=== PATIENT | female | born 1985 | race African-American/Black ===

== ENCOUNTER 2016-05-26 07:09 | Emergency (ER) | payer MEDICAID ==
[~2016-05-26] VITALS: Ht 144.8 cm; Wt 77.1 kg
[2016-05-26 07:10] VITALS: BP_SYST 129
--- NOTE | 2016-05-26 07:10 | NUR ---
BROUGHT IN BY [facility] AND PLACED IN BED #7, SITTER/CAREGIVER AT BEDSIDE, TRIAGED AND REPORT GIVEN TO CARROLL
--- NOTE | 2016-05-26 07:15 | NUR ---
Patient in stable condition, alert and oriented x4. States checked blood sugar this AM and machine would not read. Denies headache, blurred vision, fatique, increased thirst. States only symptom she is experiencing is increased urination. Visitor at bedside. No other complaints/injuries per patient or noted. Addendum: 05/26/16 at 0822 by APARNA visitor (caregiver present)
--- NOTE | 2016-05-26 07:20 | NUR ---
DR DANIELS AT BEDSIDE FOR EVALUATION
[2016-05-26] MEDS ORDERED: NACL 0.9% 1,000 ML IV ONE (07:45)
--- NOTE | 2016-05-26 07:45 | NUR ---
Patient eloped with visitor. Ambulatory with steady gait. Patient or visitor would not respond when spoken to. jewel flat surfacer, security and Dr. Ayala notified. Security stated will attempted to look for patient. Addendum: 05/26/16 at 0822 by APARNA visitor is caregiver
--- NOTE | 2016-05-26 08:15 | NUR ---
Patient and visitor (caregiver) returned to ER, patient yelling, triage nurse Teresa speaking with patient
[2016-05-26 08:49] LABS: EOSINOPHILS # (AUTO) 0.1 K/uL (0.0-0.4); EOSINOPHILS % (AUTO) 2.9 % (0.0-4.0); HEMATOCRIT 37.4 % (36-48); HEMOGLOBIN 12.8 g/dL (12.0-16.0); LYMPHOCYTES # (AUTO) 1.9 K/uL (1.0-5.5); LYMPHOCYTES % (AUTO) 41.7 % (20.5-51.5); MEAN CORPUSCULAR HEMOGLOBIN 30 pg (27-31); MEAN CORPUSCULAR HGB CONC 34 % (32-36); MEAN CORPUSCULAR VOLUME 87 fL (79.0-98.0); MONOCYTES # (AUTO) 0.3 K/uL (0.0-1.0); MONOCYTES % (AUTO) 7.1 % (1.7-9.3); PLATELET COUNT (AUTO) 51 K/uL (130-430); RED BLOOD CELL COUNT(AUTO) 4.29 MIL/uL (4.2-6.2); RED CELL DISTRIBUTION WIDTH 15.3 % (9.0-15.0); WHITE BLOOD COUNT (AUTO) 4.7 K/uL (4.8-10.8)
[2016-05-26 08:53] LABS: NEUTROPHILS # (AUTO) 2.4 K/uL (1.8-7.7)
[2016-05-26 09:24] LABS: BILIRUBIN,URINE NEGATIVE (NEGATIVE); BLOOD, URINE NEGATIVE (NEGATIVE); CLARITY/URINE CLEAR (CLEAR); COLOR,URINE YELLOW (YELLOW); GLUCOSE,URINE 3+ (NEGATIVE); KETONES,URINE NEGATIVE (NEGATIVE); LEUKOCYTE ESTERASE ,URINE NEGATIVE (NEGATIVE); NITRITE, URINE NEGATIVE (NEGATIVE); PROTEIN URINE NEGATIVE (NEGATIVE); UROBILINOGEN,URINE 0.2 (0.2-1.0)
[2016-05-26 10:09] LABS: ALBUMIN 2.7 g/dL (3.4-4.8); CALCIUM 8.2 mg/dL (8.4-11.0); CREATININE 1.18 mg/dL (0.55-1.30); POTASSIUM 4.2 mmol/L (3.5-5.1); TOTAL BILIRUBIN 0.3 mg/dL (0.0-1.0); TOTAL PROTEIN, SERUM 6.1 g/dL (6.4-8.3)
[2016-05-26 10:24] LABS: RBC,URINE NONE SEEN /HPF (0-3)
[2016-05-26 10:25] LABS: BACTERIA,URINE FEW /HPF (None Seen); MUCUS,URINE None Seen /LPF (None Seen); WBC,URINE 0-3 /HPF (0-3)
[2016-05-26 10:27] LABS: NEUTROPHILS % (AUTO) 48.3 % (40.0-70.0)
--- NOTE | 2016-05-26 10:52 | NUR ---
Patient & care givers given written and verbal discharge instructions and verbalizes understanding. ER MD discussed with patient the results and treatment provided. Given copies of tests performed in ER. Patient in stable condition. ID arm band removed. IV catheter removed intact and dressing applied, no active bleeding. Patient & care givers educated on pain management and to follow up with PMD. Pain Scale 0/10.Opportunity for questions provided and answered.
== END 2016-05-26 10:52 | disposition home or self-care (01) ==
LOC: SED 07:09
DX: E11.65 Type 2 diabetes mellitus with hyperglycemia (principal); I10 Essential (primary) hypertension; F20.9 Schizophrenia, unspecified; F31.9 Bipolar disorder, unspecified; F41.9 Anxiety disorder, unspecified; Z79.4 Long term (current) use of insulin
CPT/HCPCS: 36415; 80053; 81000-TC; 81025; 82962; 83605; 85025; 87040-TC; 96360; 99284; J7030

== ENCOUNTER 2017-07-30 11:58 | Emergency (ER) | payer MEDICAID ==
[~2017-07-30] VITALS: Ht 160 cm; Wt 79.4 kg
[2017-07-30 11:58] VITALS: BP_SYST 115
[2017-07-30] MEDS ORDERED: NACL 0.9% 1,000 ML IV ONE (12:01)
[2017-07-30] MEDS ORDERED: DEXT-81 PO (12:16)
[2017-07-30] MEDS ORDERED: METF1000 PO (12:16)
[2017-07-30] MEDS ORDERED: LORA-259 PO (12:16)
[2017-07-30] MEDS ORDERED: IBUP-1479 PO (12:16)
[2017-07-30] MEDS ORDERED: TRAZ-126 PO (12:16)
[2017-07-30] MEDS ORDERED: ZOLP10TA2 PO (12:16)
[2017-07-30] MEDS ORDERED: LISI10TA5 PO (12:16)
[2017-07-30] MEDS ORDERED: OMEP40CA33 PO (12:16)
[2017-07-30] MEDS ORDERED: GUAI100S PO (12:16)
[2017-07-30] MEDS ORDERED: MONT10TA25 PO (12:16)
[2017-07-30] MEDS ORDERED: CALC-939 PO (12:16)
[2017-07-30] MEDS ORDERED: ALBMDI INH (12:16)
[2017-07-30] MEDS ORDERED: INSU100V9 SUBCUT (12:16)
[2017-07-30 13:14] LABS: BASOPHILS # (AUTO) 0.1 K/uL (0.0-0.2); BASOPHILS % (AUTO) 0.7 % (0.0-2.0); EOSINOPHILS # (AUTO) 0.2 K/uL (0.0-0.4); EOSINOPHILS % (AUTO) 1.4 % (0.0-4.0); HEMOGLOBIN 12.1 g/dL (12.0-16.0); LYMPHOCYTES # (AUTO) 2.1 K/uL (1.0-5.5); LYMPHOCYTES % (AUTO) 15.7 % (20.5-51.5); MEAN CORPUSCULAR HEMOGLOBIN 29 pg (27-31); MEAN CORPUSCULAR HGB CONC 34 % (32-36); MEAN CORPUSCULAR VOLUME 84 fL (79.0-98.0); MONOCYTES # (AUTO) 0.7 K/uL (0.0-1.0); NEUTROPHILS % (AUTO) 77.2 % (40.0-70.0); PLATELET COUNT (AUTO) 144 K/uL (130-430); RED BLOOD CELL COUNT(AUTO) 4.26 MIL/uL (4.2-6.2); RED CELL DISTRIBUTION WIDTH 16.3 % (9.0-15.0); WHITE BLOOD COUNT (AUTO) 13.1 K/uL (4.8-10.8)
[2017-07-30 13:28] LABS: CALCIUM 8.9 mg/dL (8.4-11.0); CREATININE 0.9 mg/dL (0.55-1.30); POTASSIUM 3.6 mmol/L (3.5-5.1)
[2017-07-30 13:33] LABS: ALBUMIN 3.1 g/dL (3.4-4.8); TOTAL BILIRUBIN 0.2 mg/dL (0.0-1.0)
[2017-07-30 13:34] LABS: PROTHROMBIN TIME 10.4 SECS (9.5-12.5)
[2017-07-30 14:52] LABS: BILIRUBIN,URINE NEGATIVE (NEGATIVE); BLOOD, URINE NEGATIVE (NEGATIVE); CLARITY/URINE SL HAZY (CLEAR); COLOR,URINE YELLOW (YELLOW); GLUCOSE,URINE NEGATIVE (NEGATIVE); KETONES,URINE NEGATIVE (NEGATIVE); LEUKOCYTE ESTERASE ,URINE NEGATIVE (NEGATIVE); NITRITE, URINE NEGATIVE (NEGATIVE); PROTEIN URINE NEGATIVE (NEGATIVE); UROBILINOGEN,URINE 0.2 (0.2-1.0)
[2017-07-30 15:15] LABS: BARBITURATE, URINE NEGATIVE (NEG <=200); METHAMPHETAMINES SCREEN,URINE NEGATIVE (NEG <=500); URINE AMPHETAMINE NEGATIVE (NEG <=500)
[2017-07-30 15:16] LABS: BENZODIAZEPINE, URINE POSITIVE (NEG <=150); CANNABINOID, URINE NEGATIVE (NEG <=50); COCAINE, URINE NEGATIVE (NEG <=150); OPIATE, URINE NEGATIVE (NEG <=100); PHENCYCLIDINE SCREEN,URINE NEGATIVE (NEG <=25); UR TRICYCLIC ANTIDEPRESSANTS NEGATIVE (NEG <=300); URINE METHADONE NEGATIVE (NEG <=200); URINE OXYCODONE SCREEN NEGATIVE (NEG <=100); URINE PROPOXYPHENE SCREEN NEGATIVE (NEG <=300)
[2017-07-30 16:08] VITALS: BP_SYST 118
== END 2017-07-30 16:07 | disposition home or self-care (01) ==
LOC: SED 11:58
DX: E11.649 Type 2 diabetes mellitus with hypoglycemia without coma (principal); J40 Bronchitis, not specified as acute or chronic; F20.9 Schizophrenia, unspecified; K21.9 Gastro-esophageal reflux disease without esophagitis; I10 Essential (primary) hypertension; F31.9 Bipolar disorder, unspecified; Z79.899 Other long term (current) drug therapy; Z79.4 Long term (current) use of insulin
CPT/HCPCS: 36415; 71045; 80053; 80307; 81003; 82150; 82550; 83690; 84484; 85025; 85610; 85730; 93005; 96360; 99285; J7030